=== PATIENT | male | born 2000 | race Caucasian/White ===

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

== ENCOUNTER 2018-07-12 20:25 | Emergency (ER) | END 2018-07-12 22:31 | disposition home or self-care (01) ==

== ENCOUNTER 2018-09-07 18:01 | Emergency (ER) | END 2018-09-07 19:24 | disposition home or self-care (01) ==

== ENCOUNTER 2019-06-08 17:18 | Emergency (ER) | payer OTHER ==
[~2019-06-08] VITALS: Wt 84.8 kg
[~2019-06-08 17:18] MED LIST changes: +ACET500C5 PO; +ALPR0.25 PO; +AMOX500C2 PO; +IBUP-1541 PO; +IBUP-1542 PO; -IBUP400T22 PO; +LOPE2CAP PO; +ONDA4TAB14 PO
[2019-06-08 17:22] VITALS: BP 141/78; PULSE 62; RESP 18
== END 2019-06-08 17:32 | disposition home or self-care (01) ==
LOC: E/R 17:18
DX: R59.9 Enlarged lymph nodes, unspecified (principal); F17.210 Nicotine dependence, cigarettes, uncomplicated
CPT/HCPCS: 99282

== ENCOUNTER 2019-08-09 17:40 | Emergency (ER) | payer OTHER ==
[~2019-08-09] VITALS: Ht 182.9 cm; Wt 108.1 kg
[~2019-08-09 17:40] MED LIST changes: +CEPH-443 PO; +SULF1TAB31 PO
[2019-08-09 17:50] VITALS: BP 123/68; PULSE 75; RESP 18; Ht 182.9 cm; Wt 108.1 kg
== END 2019-08-09 20:14 | disposition home or self-care (01) ==
LOC: FTE 17:40
DX: L02.411 Cutaneous abscess of right axilla (principal)
CPT/HCPCS: 99283